=== PATIENT | female | born 1965 | race Caucasian/White ===

== ENCOUNTER 2020-08-10 02:42 | Observation (INO) ==
[2020-08-10] MEDS ORDERED: Naloxone 0.4 MG/ML INJ IVP PRN (03:59)
[2020-08-10] MEDS ORDERED: Melatonin 3 MG TABLET PO PRN (03:59)
[2020-08-10] MEDS ORDERED: *HR* Promethazine 25 MG/ML VIAL IM PRN (03:59)
[2020-08-10] MEDS ORDERED: clonazePAM 1 MG TABLET PO PRN (04:22)
[2020-08-10] MEDS: Ondansetron 4 MG/2 ML VIAL IVP PRN ×2 (04:44→14:16)
[2020-08-10] MEDS: *HR* OxyCODONE/APAP 10/325 TABLET PO PRN ×3 (04:44→20:04)
[2020-08-10] MEDS: Ringers Solution, Lactated 1,000 ML IVC SCH ×2 (04:45→17:26)
[2020-08-10 05:24] LABS: Basophils # 0.1 K/mcL (0.0-0.2); Basophils % 1.7 %; Eosinophils # 0.1 K/mcL (0.0-0.6); Eosinophils % 1.9 %; Immature Granulocytes % 0.3 % (0-4); Lymphocytes # 2.1 K/mcL (0.6-4.6); Lymphocytes % 30.6 %; Mean Corpuscular HGB Conc 31.3 g/dL (31.6-35.5); Mean Corpuscular Hemoglobin 31.1 pg (28.0-33.3); Mean Corpuscular Volume 99.4 fL (83.0-100.0); Mean Platelet Volume 8.2 fL (9.4-12.4); Monocytes # 0.6 K/mcL (0.0-1.3); Monocytes % 8.4 %; Neutrophils # 3.9 K/mcL (1.6-8.9); Platelet Count 355 K/mcL (140-400); Red Blood Count 3.22 M/mcL (3.82-4.97); Red Cell Distribution Width 13.4 % (11.5-14.5); Segmented Neutrophils % 57.1 %; White Blood Count 6.9 K/mcL (4.3-11.1)
[2020-08-10 05:48] LABS: BUN/Creatinine Ratio 26 (6-26); Blood Urea Nitrogen 38 mg/dL (6-20); Calcium 8.5 mg/dL (8.6-10.3); Chloride 113 mEq/L (98-107); Glucose 93 mg/dL (70-105); Osmolality,Calculated 293 (280-300); Potassium 4.3 mEq/L (3.5-5.1); Sodium 137 mEq/L (136-145); Troponin I < 0.03 ng/mL (< 0.04); eGFR For African Americans 45 (> 60); eGFR For Non-African Americans 37 (> 60)
[2020-08-10 06:16] LABS: Carbon Dioxide 18 mEq/L (23-29)
[2020-08-10] MEDS ORDERED: Ergocalciferol (VIT D2) 50,000 UNIT (1.25MG) CAP PO SCH (09:00)
[2020-08-10] MEDS: Aspirin Enteric Coated 81 MG Tablet PO SCH (10:47)
[2020-08-10] MEDS: *HR* Digoxin 0.125 MG TABLET PO SCH (10:47)
[2020-08-10] MEDS: ALPRAZolam 1 MG TABLET PO PRN (14:16)
[2020-08-10] MEDS: Acetaminophen 325 MG TABLET PO PRN (17:26)
[2020-08-10 18:04] LABS: INR 1.5; Prothrombin Time 17.2 Seconds (9.4-12.1)
[2020-08-10] MEDS: QUEtiapine Fumarate 100 MG TABLET PO SCH (20:04)
[2020-08-10] MEDS: *HR* Warfarin 4 MG TABLET PO ONE ×2 (20:04→20:05)
[2020-08-11] MEDS: ALPRAZolam 1 MG TABLET PO PRN ×4 (00:02→21:12)
[2020-08-11 05:23] LABS: INR 1.5; Prothrombin Time 17.6 Seconds (9.4-12.1)
[2020-08-11 08:36] LABS: Calcium 8.8 mg/dL (8.6-10.3); Magnesium 1.9 mg/dL (1.6-2.6); Phosphorous 4.6 mg/dL (2.7-4.5)
[2020-08-11] MEDS: *HR* OxyCODONE/APAP 10/325 TABLET PO PRN ×3 (09:16→21:12)
[2020-08-11] MEDS: Aspirin Enteric Coated 81 MG Tablet PO SCH (09:20)
[2020-08-11] MEDS: *HR* Digoxin 0.125 MG TABLET PO SCH (09:21)
[2020-08-11] MEDS ORDERED: Ringers Solution, Lactated 500 ML IVC SCH (09:30)
[2020-08-11] MEDS ORDERED: Perflutren Lipid Microsphere 1.3 ML in 0.9 % Sodium Chloride 8.7 ML IVP PRN (09:59)
[2020-08-11] MEDS: Gabapentin 300 MG CAPSULE PO SCH ×2 (15:35→21:12)
[2020-08-11] MEDS ORDERED: *HR* Warfarin 4 MG TABLET PO ONE (18:00)
[2020-08-11] MEDS: Warfarin perPT PO SCH ×2 (20:44→20:45)
[2020-08-11] MEDS: QUEtiapine Fumarate 100 MG TABLET PO SCH (21:13)
[2020-08-12 01:48] LABS: INR 1.6; Prothrombin Time 18.6 Seconds (9.4-12.1)
[2020-08-12] MEDS: Gabapentin 300 MG CAPSULE PO SCH (08:35)
[2020-08-12] MEDS: Aspirin Enteric Coated 81 MG Tablet PO SCH (08:35)
[2020-08-12] MEDS: *HR* Digoxin 0.125 MG TABLET PO SCH (08:36)
[2020-08-12] MEDS: *HR* OxyCODONE/APAP 10/325 TABLET PO PRN (08:37)
[2020-08-12] MEDS ORDERED: Ascorbic Acid 500 MG TABLET PO SCH (09:00)
[2020-08-12 09:02] LABS: Calcium 9.2 mg/dL (8.6-10.3); Potassium 3.7 mEq/L (3.5-5.1)
[2020-08-12 11:31] VITALS: BP 102/71
[2020-08-12] MEDS: ALPRAZolam 1 MG TABLET PO PRN (12:38)
[2020-08-12] MEDS: Acetaminophen 325 MG TABLET PO PRN (12:38)
[2020-08-15] MEDS ORDERED: Ergocalciferol (VIT D2) 50,000 UNIT (1.25MG) CAP PO SCH (09:00)
== END 2020-08-12 14:43 | disposition home or self-care (01) ==
LOC: 2NENU → SUATTDRO 02:42
PROVIDERS: ADMIT Family Medicine; ATTEND Internal Medicine